=== PATIENT | female | born 1985 | race Caucasian/White ===

== ENCOUNTER 2019-02-15 22:02 | Emergency (ER) | payer SELFPAY ==
[~2019-02-15] VITALS: Ht 172.7 cm; Wt 81.8 kg
[2019-02-16 00:37] VITALS: BP 118/65
[2019-02-16] MEDS ORDERED: KETOROLAC TROMETHAMINE 60 MG/2 ML VIAL IM ONE (01:00)
== END 2019-02-16 01:55 | disposition home or self-care (01) ==
LOC: EMS 22:07
DX: S80.02XA Contusion of left knee, initial encounter (principal); W18.39XA Other fall on same level, initial encounter; Y93.89 Activity, other specified; Y92.89 Other specified places as the place of occurrence of the external cause; Y99.8 Other external cause status
CPT/HCPCS: 29505; 73564; 96372; 99283; J1885